=== PATIENT | male | born 1945 | race Caucasian/White ===

== ENCOUNTER 2021-01-08 06:10 | Day surgery (SDC) | payer OTHER ==
[~2021-01-08] VITALS: Ht 175.3 cm; Wt 68.9 kg
[2021-01-08 06:44] VITALS: BP 117/79
[2021-01-08] MEDS ORDERED: SODIUM CHLORIDE 0.9% 1,000 ML IV SCH (07:00)
[2021-01-08 07:23] LABS: INTERNATIONAL NORMALIZED RATIO 0.97 (0.93-1.1); PROTHROMBIN TIME 10.4 Seconds (9.6-11.5)
[2021-01-08] MEDS ORDERED: FENTANYL PF 100 MCG/2ML ONE (08:04)
[2021-01-08] MEDS ORDERED: MIDAZOLAM 1 MG/ML, 5ML ONE (08:04)
[2021-01-08] MEDS ORDERED: FLUMAZENIL 0.1 MG/1 ML, 5ML ONE (08:04)
[2021-01-08] MEDS ORDERED: NALOXONE 1 MG/ML, 2ML ONE (08:04)
== END 2021-01-08 10:15 | disposition home or self-care (01) ==
LOC: RAD 06:10
PROVIDERS: ATTEND Internal Medicine Nephrology
DX: N17.9 Acute kidney failure, unspecified (principal); I12.9 Hypertensive chronic kidney disease with stage 1 through stage 4 chronic kidney disease, or unspecified chronic kidney disease; N18.31 Chronic kidney disease, stage 3a; D63.1 Anemia in chronic kidney disease; N25.81 Secondary hyperparathyroidism of renal origin; N40.0 Benign prostatic hyperplasia without lower urinary tract symptoms; E78.5 Hyperlipidemia, unspecified; Z79.891 Long term (current) use of opiate analgesic; Z79.899 Other long term (current) drug therapy; Z98.890 Other specified postprocedural states
CPT/HCPCS: 36415; 50200; 77012; 85610; 88300; 99156; 99157; J2250; J3010; J2310